=== PATIENT | male | born 1980 | race Caucasian/White ===

== ENCOUNTER 2019-04-15 22:08 | Emergency (ER) | payer SELFPAY ==
[~2019-04-15] VITALS: Ht 170.2 cm; Wt 86.2 kg
[2019-04-15 22:08] VITALS: BP 133/82
--- NOTE | 2019-04-15 22:08 | NUR ---
Maciej bella in [facility] - 04/15/19 at 2214 by KEANU PT VALERY AN. TAKEN TO BED 8
--- NOTE | 2019-04-15 22:08 | NUR ---
38 Y/O MALE BIB EMS WITH C/O ETOH. PT WAS FOUND IN PUBLIC. 911 CALLED. PT CAME TO ED BUT STATES NOT WANTING TO WASTE "OUR" TIME AND WOULD LIKE TO LEAVE. ALERT TO NAME, PLACE, TIME, AND EVENT. SPEECH IS SLURRED. VSS. ER MD AWARE. CONTINUE TO MONITOR.
--- NOTE | 2019-04-15 22:08 | NUR ---
PATIENT BIB BLS TO ER BED 8.
--- NOTE | 2019-04-15 22:10 | NUR ---
PATIENT EXPRESSING WISH TO NOT BE SEEN IN ED. ER MD VERMA MADE AWARE.
--- NOTE | 2019-04-15 22:20 | NUR ---
PT PROVIDED WITH [place] PASS, FOOD, WATER, AND JUICE.
--- NOTE | 2019-04-15 22:30 | NUR ---
DISCHARGE PAPERS GIVEN TO PT. PT CONTINUES TO STATE THAT HE DOES NOT WANT TO BE SEEN BY ER AND WOULD LIKE TO LEAVE. ALERT TO NAME, PLACE, TIME, AND EVENT. VSS. INSTRUCTED WHEN TO RETURN TO ED. PT VERBALLIZED UNDERSTANDING OF DC INSTRUCTIONS. ALL QUESTIONS ANSWERED.
[2019-04-15 23:16] VITALS: BP 133/82
== END 2019-04-15 22:30 | disposition home or self-care (01) ==
LOC: MED 22:08
DX: F10.929 Alcohol use, unspecified with intoxication, unspecified (principal); E11.9 Type 2 diabetes mellitus without complications; Y90.9 Presence of alcohol in blood, level not specified
CPT/HCPCS: 99283

== ENCOUNTER 2019-06-09 19:03 | Inpatient (IN) | payer SELFPAY ==
[~2019-06-09] VITALS: Ht 165.1 cm; Wt 74.8 kg
[2019-06-09 19:16] VITALS: BP 124/90
--- NOTE | 2019-06-09 19:16 | NUR ---
TO BED # 06 AMBULATORY
--- NOTE | 2019-06-09 19:20 | NUR ---
38 Y/O MALE PRESENTS TO ED, C/O ANXIETY. PT STATES DRINKING 4 24OZ OF BEERS DAILY, LAST DRINK WAS TODAY HAD 2 24OZ. PT HAS HX OF HTN, DM. DENIES TAKING ANY MEDICATIONS FOR ANXIETY. DENIES ANY DRUG USE. NO SOB/CHEST PAIN. PT VSS. ERMD AWARE. WILL CONTINUE TO MONITOR.
[2019-06-09 20:08] LABS: BARBITURATE, URINE NEG. ng/ml (NEG <=200); BENZODIAZEPINE, URINE NEG. ng/mL (NEG <=200); CANNABINOID, URINE NEG. ng/mL (NEG <=50); COCAINE, URINE NEG. ng/mL (NEG <=300); OPIATE, URINE NEG. ng/mL (NEG <=2000); PHENCYCLIDINE SCREEN,URINE NEG. ng/mL (NEG <=25)
--- NOTE | 2019-06-09 20:53 | NUR ---
Dr. Herrera examining patient.
--- NOTE | 2019-06-09 21:04 | NUR ---
PT C/O ANXIETY. PT VSS. ERMD AWARE. WILL CONTINUE TO MONITOR.
[2019-06-09] MEDS ORDERED: ONDANSETRON 4 MG/2 ML VIAL IVP ONE (21:15)
[2019-06-09] MEDS ORDERED: NACL 0.9% 1,000 ML IV ONE (21:15)
[2019-06-09] MEDS ORDERED: LORazepam 2 MG/ML VIAL IVP ONE (21:15)
[2019-06-09 21:35] LABS: APPEARANCE,URINE CLEAR (CLEAR); BILIRUBIN,URINE NEGATIVE (NEGATIVE); BLOOD, URINE NEGATIVE (NEGATIVE); COLOR,URINE YELLOW (YELLOW); LEUKOCYTE ESTERASE ,URINE NEGATIVE (NEGATIVE); NITRITE, URINE NEGATIVE (NEGATIVE); UGLUCOSE TRACE (NEGATIVE)
--- NOTE | 2019-06-09 21:37 | NUR ---
X-Ray at bedside.
[2019-06-09 21:40] LABS: BASOPHILS % (AUTO) 0.6 % (0.0-2.0); EOSINOPHILS # (AUTO) 0.1 K/uL (0-0.4); EOSINOPHILS % (AUTO) 0.9 % (0.0-4.0); HEMATOCRIT 42.6 % (36-52); HEMOGLOBIN 14.5 g/dL (12.0-18.0); LYMPHOCYTES # (AUTO) 2.1 K/uL (2.0-11.5); LYMPHOCYTES % (AUTO) 27.1 % (20.5-51.1); MEAN CORPUSCULAR HEMOGLOBIN 28 pg (27-31); MEAN CORPUSCULAR HGB CONC 34 g/dL (33-37); MEAN CORPUSCULAR VOLUME 81.7 fL (80-94); MONOCYTES % (AUTO) 12.2 % (1.7-9.3); NEUTROPHILS # (AUTO) 4.7 K/uL (1.8-7.7); NEUTROPHILS % (AUTO) 59.2 % (42.2-75.2); PLATELET COUNT (AUTO) 169 K/uL (140-450); RED BLOOD CELL COUNT(AUTO) 5.21 MIL/uL (4.20-6.10); RED CELL DISTRIBUTION WIDTH 13.8 % (11.6-13.7); WHITE BLOOD COUNT (AUTO) 7.8 K/uL (4.8-10.8)
[2019-06-09 21:55] LABS: ACETAMINOPHEN < 0.5 ug/ml (10-30); ALBUMIN 4.2 g/dL (3.4-5.0); ANION GAP 21.6 (8-16); ASPARTATE AMINOTRANSFERASE 27 U/L (15-37); CARBON DIOXIDE 20.3 mmol/L (21-32); CHLORIDE 91 mmol/L (98-107); CREATININE 0.9 mg/dL (0.7-1.3); GFR ARICAN-AMERICAN 123 mL/min (>90); GLUCOSE 128 mg/dL (74-106); SALICYLATE < 2.8 mg/dL (2.8-20.0); SODIUM SERUM 130 mmol/L (136-145); TOTAL BILIRUBIN 1.3 mg/dL (0.0-1.0); UREA NITROGEN, BLOOD 4 mg/dL (7-18)
[2019-06-09 21:57] LABS: POTASSIUM 2.9 mmol/L (3.5-5.1)
--- NOTE | 2019-06-09 22:58 | NUR ---
PT ASLEEP ON BED. NO ANXIETY. COUSIN AT BEDSIDE. PT VSS. ERMD AWARE. WILL CONTINUE TO MONITOR.
[2019-06-09] MEDS ORDERED: KCL 20 MEQ/WATER INJ PREMIX 200 ML IV ONE (23:05)
[2019-06-10] MEDS ORDERED: ONDANSETRON 4 MG/2 ML VIAL IM/IVP PRN (02:05)
[2019-06-10] MEDS ORDERED: DOCUSATE SODIUM 100 MG GELCAP PO PRN (02:05)
[2019-06-10] MEDS ORDERED: ACETAMINOPHEN 325 MG TAB PO PRN (02:05)
--- NOTE | 2019-06-10 02:20 | NUR ---
PT ADMITTED TO MS TELE ROM 106A. TRANSPORTED PT VIA GURNEY. PT STABLE. REPORT GIVEN TO YARY CASH. PT CARE TRANSFERRED.
--- NOTE | 2019-06-10 02:20 | NUR ---
RECEIVED BEDSIDE REPORT FROM ED RN SERINA FOR PT'S CONTINUITY OF CARE. PT IS ALERT, AWAKE, ORIENTED X 4, C/O TREMBLING/SHAKING, ON ROOM AIR, HAS RIGHT AC 20G IV SALINE LOCK, DENIES PAIN AT THIS TIME. EXPLAINED TO PT CORPORATE GENERAL MANAGER ROUTINE, AND PLAN OF CARE FOR THE DAY, PT VERBALIZED UNDERSTANDING. BED IS ON LOW POSITION, SIDE RAILS ARE UP, AND CALL LIGHT WITHIN REACH. WILL MONITOR PT THROUGHOUT SHIFT.
[2019-06-10] MEDS ORDERED: DEXTROSE 50% 50 ML SYR IVP PRN (02:35)
[2019-06-10 02:46] LABS: MAGNESIUM 1.9 mg/dL (1.8-2.4); PHOSPHORUS 2.3 mg/dL (2.5-4.9); THYROID STIMULATING HORMONE 5.62 uIU/mL (0.34-3.74)
[2019-06-10 02:49] LABS: PROTHROMBIN TIME 10.4 secs (10.8-13.4)
[2019-06-10 03:04] VITALS: BP 128/73
[2019-06-10] MEDS: NACL 0.9% 1,000 ML IV SCH ×4 (03:05→22:06)
--- NOTE | 2019-06-10 04:00 | NUR ---
VITAL SIGNS CHECKED AND CHARTED. PT WAS ASLEEP, WITH NO SIGNS OF DISTRESS. MD AWARE AND OK TO GIVE BANANA BAG IN AM WHEN PHARMACY OPENS. WILL ENDORSE TO AM SHIFT RN TO F/U AND INITIATE.
[2019-06-10] MEDS: BLOOD GLUCOSE MONITORING 1 DEV DEV FS SCH ×4 (06:12→20:41)
[2019-06-10] MEDS: INSULIN LISPRO SLIDING SCALE 100 UNITS/ML VIAL SUBQ PRN ×4 (06:13→20:48)
--- NOTE | 2019-06-10 06:20 | NUR ---
PT WAS ASLEEP, EXPLAINED ABOUT BLOOD GLUCOSE CHECK. BLOOD GLUCOSE CHECKED AND CHARTED. ADMINISTERED INSULIN ORDERED, PER SLIDING SCALE. PT TOLERATED IT WELL. PT DENIES PAIN OR ANXIETY AT THIS TIME. WILL ENDORSE TO AM SHIFT RN FOR PT'S CONTINUITY OF CARE.
--- NOTE | 2019-06-10 07:10 | NUR ---
RECEIVED REPORT FROM SUPERVISOR SIGN SHOP NURSE. PT AROUSABLE TO NAME, AAOX4. PT ON CHAUFFEUR, NSR. IV ON RT AC 20 GA RUNNING IVF PER ORDER. RESPIRATIONS EVEN AND UNLABORED ON RA. LBM ON 06/09, BOWEL SOUNDS ACTIVE, SOFT ABD. PT ON FALL RISK AND SEIZURE PRECAUTIONS D/T DX ALCOHOL WITHDRAWAL. SAFETY MEASURES IN PLACE, BED ON LOW POSITION, CALL LIGHT WITHIN REACH. REVIEWED POC WITH PT, PT VERBALIZED UNDERSTANDING.
[2019-06-10 08:00] VITALS: BP 128/70
[2019-06-10 08:35] LABS: ANION GAP 14.5 (8-16); CARBON DIOXIDE 24.2 mmol/L (21-32); CREATININE 0.9 mg/dL (0.7-1.3); POTASSIUM 3.7 mmol/L (3.5-5.1)
[2019-06-10] MEDS ORDERED: MULTIVITAMIN-12 10 ML VIAL IV ONE (08:49)
[2019-06-10] MEDS ORDERED: THIAMINE 200 MG/2 ML VIAL ONE (08:49)
[2019-06-10] MEDS ORDERED: MULTIVITAMIN-12 10 ML, THIAMINE 100 MG, MAGNESIUM SULFATE 50% 2,000 MG, FOLIC ACID 1 MG... IV SCH ×5 (09:00)
[2019-06-10] MEDS: chlordiazePOXIDE 25 MG CAP PO SCH ×3 (09:17→17:03)
[2019-06-10] MEDS: GABAPENTIN 300 MG CAP PO SCH ×3 (09:17→17:03)
--- NOTE | 2019-06-10 09:28 | NUR ---
PT REPORTED 2 NON-DIARRHEA BOWEL MOVEMENTS. NO SIGNS OF DISTRESS AT THIS TIME.
[2019-06-10 12:00] VITALS: BP 143/84
--- NOTE | 2019-06-10 12:50 | NUR ---
PT SITTING UP IN BED HAVING LUNCH, NO C/O PAIN AT THIS TIME. PT VERBALIZED THAT HE WAS ABLE TO SPEAK WITH DR. GARCIA REGARDING CONCERNS.
--- NOTE | 2019-06-10 15:08 | NUR ---
NS IVF NON-ADMINISTERED AT THIS TIME, BANANA BAG STILL INFUSING PER ORDER.
[2019-06-10 16:00] VITALS: BP 146/85
--- NOTE | 2019-06-10 17:03 | NUR ---
ADMINISTERED LIBRIUM AND GABAPENTIN PER ORDER. PT IS AWARE OF INDICATIONS AND POTENTIAL SIDE EFFECTS. PT C/O LEVEL 610 HEADACHE, WILL MEDICATE PER ORDER.
[2019-06-10] MEDS: HYDROcodone/APAP 7.5/325 MG 1 TAB PO PRN ×2 (17:10→23:39)
--- NOTE | 2019-06-10 19:05 | NUR ---
RECEIVED BEDSIDE REPORT FROM DAY SHIFT NURSE. PATIENT IS AWAKE, ALERT, AND COOPERATIVE. RESPIRATION EVEN UNLABORED ON ROOM AIR. NO DISTRESS NOTED. SKIN IS WARM AND DRY. IV PATENT AND INTACT. DENIES PAIN. PLAN OF CARE WAS DISCUSSED. ALL SAFETY MEASURES IN PLACE. BED IS AT LOW POSITION. CALL LIGHT WITHIN REACH AND VERBALIZES ITS USE. WILL CONTINUE TO MONITOR.
--- NOTE | 2019-06-10 19:10 | NUR ---
ENDORSED PT TO CONTROL TOWER RADIO OPERATOR NURSE. PT HAS NO SIGNS OF DISTRESS AT THIS TIME.
--- NOTE | 2019-06-10 20:00 | NUR ---
INITIAL ASSESSMENT DONE. VITALS WERE TAKEN. NO DISTRESS NOTED. WILL CONTINUE TO MONITOR.
--- NOTE | 2019-06-10 21:00 | NUR ---
ALL SCHEDULED MEDS WERE GIVEN PER ORDER. NO ASE NOTED. CALL LIGHT WITHIN REACH. WILL CONTINUE TO MONITOR.
--- NOTE | 2019-06-10 22:00 | NUR ---
IV INFILTRATED. NO ACTIVE BLEEDING SEEN. CANNULA INTACT. INSERTED NEW ONE LEFT HAND 24G AND TOLERATED WELL. WILL CONTINUE TO MONITOR.
--- NOTE | 2019-06-10 23:39 | NUR ---
PATIENT COMPLAINED OF PAIN 7/10 HEADACHE. PRN PAIN MED ADMINISTERED PER ORDER. WILL CONTINUE TO MONITOR.
[2019-06-11] VITALS: BP 143/90
--- NOTE | 2019-06-11 | NUR ---
VITALS WERE TAKEN. PATIENT VERBALIZES REDUCE PAIN. WILL CONTINUE TO MONITOR.
--- NOTE | 2019-06-11 02:00 | NUR ---
CHECKED PATIENT. PATIENT SLEEPING RESPIRATION EVEN UNLABORED ON ROOM AIR. NO DISTRESS NOTED. WILL CONTINUE TO MONITOR.
--- NOTE | 2019-06-11 04:00 | NUR ---
PATIENT WOKE UP FEELING HUNGRY. GAVE SNACKS.
[2019-06-11] MEDS: NACL 0.9% 1,000 ML IV SCH (04:47)
[2019-06-11] MEDS: chlordiazePOXIDE 25 MG CAP PO SCH (06:13)
--- NOTE | 2019-06-11 06:13 | NUR ---
PATIENT IS COMPLAINING OF FEELING RESTLESSNESS AND AGITATED AFTER HIS PHONE CONVERSATION WITH HIS . PATIENT ASKED FOR MEDS TO HELP HIM CALM DOWN. NOTIFIED DR. GAFFNEY (RESIDENT) REGARDING THE SITUATION. HE ORDERED TO PULL OUT THE SCHEDULE DOSE OF LIBRIUM FOR 9AM TO BE GIVEN NOW. WILL CONTINUE TO MONITOR.
[2019-06-11] MEDS: INSULIN LISPRO SLIDING SCALE 100 UNITS/ML VIAL SUBQ PRN (06:26)
[2019-06-11] MEDS: BLOOD GLUCOSE MONITORING 1 DEV DEV FS SCH (06:30)
--- NOTE | 2019-06-11 07:15 | NUR ---
ENDORSED PATIENT TO DAY SHIFT NURSE. PATIENT IN STABLE CONDITION.
[2019-06-11 07:30] LABS: MAGNESIUM 2.1 mg/dL (1.8-2.4); PHOSPHORUS 2.8 mg/dL (2.5-4.9)
--- NOTE | 2019-06-11 07:52 | NUR ---
PT LEFT AMA AT 0742, PT A/O X4. EDUCATED PT ON THE IMPORTANCE OF STAYING AND RECEIVING FULL MEDICAL TREATMENT. CAME TO SPEAK WITH PT. PT STILL WANTS TO LEAVE. SAYS HE HAS A DETOX APPOINTMENT AT 0900. PT IN STABLE CONDITION BUT SEEMS ANXIOUS. IV TAKEN OUT, NO BLEEDING NOTED. HOSPITAL WRISTBAND TAKEN OUT. SECURITY ESCORTED PT OUT OF UNIT. PT AMBULATORY AND APPEARS IN NO DISTRESS. PT TOOK PERSONAL BLANKET AND PAPERWORK.
--- NOTE | 2019-06-11 08:12 | NUR ---
PATIENT HAS BEEN SCREENED AND CATEGORIZED MODERATE NUTRITION RISK. PATIENT WILL BE SEEN WITHIN 3-5 DAYS OF ADMISSION. 06/12/[address]
[2019-06-11 08:25] LABS: ANION GAP 13.4 (8-16); CARBON DIOXIDE 25.5 mmol/L (21-32); CREATININE 0.9 mg/dL (0.7-1.3); POTASSIUM 3.9 mmol/L (3.5-5.1)
[2019-06-11 08:52] LABS: BASOPHILS % (AUTO) 0.9 % (0.0-2.0); EOSINOPHILS # (AUTO) 0.1 K/uL (0-0.4); EOSINOPHILS % (AUTO) 1.9 % (0.0-4.0); HEMATOCRIT 39.2 % (36-52); HEMOGLOBIN 12.9 g/dL (12.0-18.0); LYMPHOCYTES # (AUTO) 1.1 K/uL (2.0-11.5); MEAN CORPUSCULAR HEMOGLOBIN 28 pg (27-31); MEAN CORPUSCULAR HGB CONC 33 g/dL (33-37); MEAN CORPUSCULAR VOLUME 84.4 fL (80-94); MONOCYTES # (AUTO) 0.4 K/uL (0.8-1.0); MONOCYTES % (AUTO) 9.1 % (1.7-9.3); NEUTROPHILS # (AUTO) 2.7 K/uL (1.8-7.7); NEUTROPHILS % (AUTO) 62.1 % (42.2-75.2); PLATELET COUNT (AUTO) 120 K/uL (140-450); RED BLOOD CELL COUNT(AUTO) 4.65 MIL/uL (4.20-6.10); RED CELL DISTRIBUTION WIDTH 13.9 % (11.6-13.7); WHITE BLOOD COUNT (AUTO) 4.4 K/uL (4.8-10.8)
--- NOTE | 2019-06-11 15:49 | NUR ---
SW attempted to conduct assessment but patient had discharged.
--- NOTE | 2019-06-12 07:21 | NUR ---
LATE ENTRY: PULLED OUT ATIVAN 2MG/1ML. PULLED FULL DOSE FROM [facility] BUT WASTED 1MG WITH BROOEK AMEZQUITA RN. Addendum: 06/12/19 at 0733 by [email or web address] LATE ENTRY: PULLED OUT ATIVAN 2MG/1ML. PULLED FULL DOSE FROM PYXIS BUT WASTED 1MG WITH BROOKE AMEZQUITA RN ON 06/09/19 3542.
== END 2019-06-11 07:42 | disposition left against medical advice (07) | DRG 641 ==
LOC: MED 19:03 → MTU 06-10 01:46
PROVIDERS: ADMIT General Practice; ATTEND General Practice
DX: E87.1 Hypo-osmolality and hyponatremia (principal); F10.20 Alcohol dependence, uncomplicated; F11.10 Opioid abuse, uncomplicated; F15.90 Other stimulant use, unspecified, uncomplicated; I10 Essential (primary) hypertension; E11.9 Type 2 diabetes mellitus without complications; E87.6 Hypokalemia; E86.0 Dehydration; E87.8 Other disorders of electrolyte and fluid balance, not elsewhere classified; E11.40 Type 2 diabetes mellitus with diabetic neuropathy, unspecified; E78.1 Pure hyperglyceridemia; Z53.21 Procedure and treatment not carried out due to patient leaving prior to being seen by health care provider
CPT/HCPCS: 36415; 71045; 80048; 80053; 80305; 81003; 82150; 82948; 83036; 83690; 83735; 83880; 84100; 84443; 84484; 85025; 85610; 85730; 87081; 96361; 96365; 96375; 99285; A9153; G0480; G0482; J1815; J2060; J2405; J3411; J3475; J3480; J3490; J7030; Q0092